=== PATIENT | male | born 1995 | race Caucasian/White ===

== ENCOUNTER 2017-04-07 22:26 | Emergency (ER) | payer SELFPAY ==
[2017-04-07 22:44] VITALS: BP 155/65
[2017-04-08] MEDS ORDERED: Acetaminophen TAB* 325 MG PO ONE (00:19)
[2017-04-08] MEDS ORDERED: Ondansetron ODT TAB* 4 MG PO ONE (00:22)
[2017-04-08] MEDS ORDERED: Cyclobenzaprine TAB* 10 MG PO ONE (02:41)
[2017-04-08] MEDS ORDERED: Cyclobenzaprine TAB* 10 MG ONE (02:42)
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
== END 2017-04-08 02:40 | disposition home or self-care (01) ==
LOC: ED 22:26
DX: S16.1XXA Strain of muscle, fascia and tendon at neck level, initial encounter (principal); R51 Headache; R11.0 Nausea; V49.9XXA Car occupant (driver) (passenger) injured in unspecified traffic accident, initial encounter; Y93.9 Activity, unspecified; Y92.9 Unspecified place or not applicable
CPT/HCPCS: 70450; 72125; 99282; A9270-GY

== ENCOUNTER 2017-08-06 13:49 | Emergency (ER) | payer BC ==
[2017-08-06 15:24] LABS: Urine Appearance Clear; Urine Blood Negative (Negative); Urine Color Straw; Urine Ketones Negative (Negative); Urine Protein Negative (Negative); Urine Specific Gravity 1.004 (1.010-1.030); Urine Urobilinogen Negative (Negative)
--- NOTE | 2017-08-06 15:25 | RAD ---
INDICATION: Right flank pain COMPARISON: None TECHNIQUE: Noncontrast axial source images were acquired from the level hemidiaphragms to the symphysis pubis as part of CT imaging for renal stone. Lung bases: The lung bases are clear. Liver: The liver is normal in size. Noncontrast imaging shows no evidence of a hepatic mass or ductal dilatation. Gallbladder: There are no calcified gallstones. There is no evidence of wall thickening or pericholecystic fluid.. Spleen: The spleen is normal in size. The noncontrast CT appearance is normal. Pancreas: Noncontrast imaging shows no pancreatic mass or ductal dilitation. Adrenal glands: No masses are identified. Kidneys/Bladder: There is no evidence of nephrolithiasis or CT evidence of hydronephrosis. Noncontrast imaging shows no evidence of a renal mass. The bladder is unremarkable.. Adenopathy: There is no evidence of intraperitoneal or retroperitoneal adenopathy. Evaluation is limited without oral contrast. Fluid collections: There are no free or localized fluid collections. Vessels: The aorta and iliac vessels are normal in caliber. There are no significant atherosclerotic changes. The IVC appears normal Pelvic organs: The uterus and adnexa appear normal GI tract: Evaluation of the bowel is limited without oral contrast. The stomach, small bowel, and lower GI tract appear grossly normal. There are no obstructive findings. The appendix is visualized and appears normal. Soft tissues: No soft tissue abnormalities of the extraperitoneal abdomen or pelvis are identified. Osseous structures: There are no acute osseous findings. IMPRESSION: NO ACUTE CT FINDINGS. NO EVIDENCE OF UROLITHIASIS. NORMAL APPENDIX.
[2017-08-06 16:19] LABS: ABS Basophils 0 10^3/ul (0-0.2); ABS Eosinophils 0.2 10^3/ul (0-0.6); ABS Lymphocytes 2.2 10^3/ul (1.0-4.8); ABS Monocytes 0.5 10^3/ul (0-0.8); ABS Nucleated RBC 0 10^3/ul; Eosinophil % 2.6 % (0-6); Hematocrit 46 % (42-52); Hemoglobin 15.9 g/dl (14.0-18.0); Lymphocyte % 27.8 % (25-47); Mean Corpuscular HGB Conc 35 g/dl (31-36); Mean Corpuscular Hemoglobin 31 pg (27-31); Mean Corpuscular Volume 88 fL (80-94); Mean Platelet Volume 8 um3 (7.4-10.4); Nucleated Red Blood Cells % 0.1; Platelet Count 156 10^3/ul (150-450); Red Blood Count 5.21 10^6/ul (4.0-5.4); Red Cell Distribution Width 13 % (10.5-15); White Blood Count 8.1 10^3/ul (3.5-10.8)
[2017-08-06 16:39] LABS: EGFR Non-African American 96.6 (>60)
[2017-08-06] MEDS ORDERED: Ketorolac INJ* 30 MG/ML 1 ML VIAL IM ONE (16:55)
[2017-08-06 17:12] VITALS: BP 132/57
--- NOTE | 2017-08-08 11:41 | ED ---
Jose Mendez Angela, scribed for Riley Novoa MD on 08/06/17 at 1443 . Abdominal Pain/Male - HPI Summary HPI Summary: This pt is a 21 y/o male presenting to [facility] c/o right flank pain since last night at around 21:00. Pt states his pain began suddenly last night and has been constant since then. Pt currently rates his pain 7/10 in severity. His pain is aggravated with movement and deep breathing. He additionally notes diarrhea (described as loose stool which is not normal for him) and nausea ( earlier today). He denies cough, vomiting, fever, chills, hematuria, difficulty voiding. Pt states he has never had this pain before. He reports occasional marijuana and alcohol use. Pt denies tobacco use. - History of Current Complaint Chief Complaint: EDFlankPain Stated Complaint: ABD PAIN Time Seen by Provider: 08/06/17 14:34 Hx Obtained From: Patient Onset/Duration: Lasting Hours, Still Present Timing: Constant, Lasting Hours Severity Currently: Severe Pain Intensity: 7 Pain Scale Used: 0-10 Numeric Location: Flank - left Radiates: No Character: Sharp Aggravating Factor(s): Movement, Deep Breaths Alleviating Factor(s): Nothing Associated Signs And Symptoms: Positive: Nausea, Diarrhea. Negative: Fever, Constipation, Urinary Symptoms, Vomiting - Allergies/Home Medications Allergies/Adverse Reactions: Allergies Allergy/AdvReac Type Severity Reaction Status Date / Time MS No Known Drug Allergy Allergy Shortness Verified 05/05/14 19:48 [No Known Drug Allergy] of Breath PMH/Surg Hx/FS Hx/Imm Hx Endocrine/Hematology History: Denies: Hx Diabetes Cardiovascular History: Denies: Hx Hypertension Sensory History: Denies: Hx Legally Blind, Hx Deafness Opthamlomology History: Denies: Hx Legally Blind - Surgical History Surgery Procedure, Year, and Place: right shoulder surgery Infectious Disease History: No Infectious Disease History: Denies: Traveled Outside the [place] in Last 30 Days - Family History Known Family History: Positive: Other - Cancer Negative: Hypertension, Diabetes - Social History Alcohol Use: Occasionally Alcohol Amount: socially Substance Use Type: Reports: Marijuana Smoking Status (MU): Never Smoked Tobacco Review of Systems Negative: Fever, Chills Negative: Cough Positive: Diarrhea, Nausea. Negative: Vomiting Positive: flank pain - right. Negative: hematuria, other - difficulty voiding All Other Systems Reviewed And Are Negative: Yes Physical Exam - Summary Physical Exam Summary: VITAL SIGNS: Reviewed. GENERAL: Patient is a well-developed and nourished male who is lying comfortable in the stretcher. Patient is not in any acute respiratory distress. HEAD AND FACE: No signs of trauma. No ecchymosis, hematomas or skull depressions. No sinus tenderness. EYES: PERRLA, EOMI x 2, No injected conjunctiva, no nystagmus. EARS: Hearing grossly intact. Ear canals and tympanic membranes are within normal limits. MOUTH: Oropharynx within normal limits. NECK: Supple, trachea is midline, no adenopathy, no JVD, no carotid bruit, no c- spine tenderness, neck with full ROM. CHEST: Symmetric, no tenderness at palpation LUNGS: Clear to auscultation bilaterally. No wheezing or crackles. CVS: Regular rate and rhythm, S1 and S2 present, no murmurs or gallops appreciated. ABDOMEN: Soft. Left flank tenderness. No signs of distention. No rebound no guarding, and no masses palpated. Bowel sounds are normal. EXTREMITIES: FROM in all major joints, no edema, no cyanosis or clubbing. NEURO: Alert and oriented x 3. No acute neurological deficits. Speech is normal and follows commands. SKIN: Dry and warm Triage Information Reviewed: Yes Vital Signs On Initial Exam: Initial Vitals Temp Pulse Resp BP Pulse Ox 98.1 F 58 16 142/71 100 08/06/17 13:55 08/06/17 13:55 08/06/17 13:55 08/06/17 13:55 08/06/17 13:55 Vital Signs Reviewed: Yes Diagnostics - Vital Signs Vital Signs Temp Pulse Resp BP Pulse Ox 08/06/17 14:37 60 98 08/06/17 13:55 98.1 F 58 16 142/71 100 - Laboratory Lab Results: Lab Results 08/06/17 08/06/17 08/06/17 Range/Units 15:00 15:40 15:40 WBC 8.1 (3.5-10.8) 10^3/ul RBC 5.21 (4.0-5.4) 10^6/ul Hgb 15.9 (14.0-18.0) g/dl Hct 46 (42-52) % MCV 88 (80-94) fL MCH 31 (27-31) pg MCHC 35 (31-36) g/dl RDW 13 (10.5-15) % Plt Count 156 (150-450) 10^3/ul MPV 8 (7.4-10.4) um3 Neut % (Auto) 62.5 (38-83) % Lymph % (Auto) 27.8 (25-47) % [place] % (Auto) 6.5 (1-9) % Eos % (Auto) 2.6 (0-6) % Baso % (Auto) 0.6 (0-2) % Absolute Neuts (auto) 5.0 (1.5-7.7) 10^3/ul Absolute Lymphs (auto) 2.2 (1.0-4.8) 10^3/ul Absolute Monos (auto) 0.5 (0-0.8) 10^3/ul Absolute Eos (auto) 0.2 (0-0.6) 10^3/ul Absolute Basos (auto) 0 (0-0.2) 10^3/ul Absolute Nucleated RBC 0 10^3/ul Nucleated RBC % 0.1 Sodium 138 (133-145) mmol/L Potassium 4.2 (3.5-5.0) mmol/L Chloride 103 (101-111) mmol/L Carbon Dioxide 28 (22-32) mmol/L Anion Gap 7 (2-11) mmol/L BUN 18 (6-24) mg/dL Creatinine 0.98 (0.67-1.17) mg/dL Est GFR ( Amer) 124.2 (>60) Est GFR (Non-Af Amer) 96.6 (>60) BUN/Creatinine Ratio 18.4 (8-20) Glucose 83 (70-100) mg/dL Calcium 9.6 (8.6-10.3) mg/dL Total Bilirubin 1.40 H (0.2-1.0) mg/dL AST 44 H (13-39) U/L ALT 31 (7-52) U/L Alkaline Phosphatase 41 (34-104) U/L C-Reactive Protein < 1.00 (< 5.00) mg/L Total Protein 6.8 (6.4-8.9) g/dL Albumin 4.3 (3.2-5.2) g/dL Globulin 2.5 (2-4) g/dL Albumin/Globulin Ratio 1.7 (1-3) Lipase 31 (11.0-82.0) U/L Urine Color Straw Urine Appearance Clear Urine pH 7.0 (5-9) Ur Specific [place] 1.004 L (1.010-1.030) Urine Protein Negative (Negative) Urine Ketones Negative (Negative) Urine Blood Negative (Negative) Urine Nitrate Negative (Negative) Urine Bilirubin Negative (Negative) Urine Urobilinogen Negative (Negative) Ur Leukocyte Esterase Negative (Negative) Urine Glucose Negative (Negative) Result Diagrams: 08/06/17 15:40 08/06/17 15:40 Lab Statement: Any lab studies that have been ordered have been reviewed, and results considered in the medical decision making process. - CT Abdomen/pelvis CT CT Interpretation: No Acute Changes - IMPRESSION: No acute CT findings. No evidence of urolithiasis. Normal appendix. Dr. Novoa has reviewed this radiology report. CT Interpretation Completed By: Radiologist Re-Evaluation - Re-Evaluation First Eval Re-Evaluation Time: 16:59 Comment: I reviewed the CT results with the pt. Abdominal Pain Fem Course/Dx - Course Assessment/Plan: This pt is a 21 y/o male presenting to [facility] c/o right flank pain since last night at around 21:00. Pt states his pain began suddenly last night and has been constant since then. Pt currently rates his pain 7/10 in severity. His pain is aggravated with movement and deep breathing. He additionally notes diarrhea (described as loose stool which is not normal for him) and nausea (earlier today). He denies cough, vomiting, fever, chills, hematuria, difficulty voiding. Pt states he has never had this pain before. Test results without any significant abnormalities. Abdomen/Pelvis CT: No acute CT findings. No evidence of urolithiasis. Normal appendix. In the ED course the pt was given Toradol and the symptoms resolved. Pt is asymptomatic, and is drinking and eating without nausea or vomiting. Therefore, the pt will be discharged to home with follow up from PCP. Pt is hemodynamically stable, alert and oriented x3. He is pain free. - Diagnoses Provider Diagnoses: Flank pain Discharge - Discharge Plan Condition: Stable Disposition: HOME Patient Education Materials: Flank Pain (ED) Referrals: [facility] [Primary Care Provider] - 3 Days Additional Instructions: Please follow up with your primary care provider. RETURN TO THE ED FOR ANY WORSENING SYMPTOMS. The documentation as recorded by the Jose eid Angela accurately reflects the service I personally performed and the decisions made by me, Riley Novoa MD.
== END 2017-08-06 17:11 | disposition home or self-care (01) ==
LOC: ED 13:49
DX: R10.84 Generalized abdominal pain (principal); R11.0 Nausea; R19.7 Diarrhea, unspecified
CPT/HCPCS: 36415; 74176; 80053; 81003; 83690; 85025; 86140; 96372; 99282; J1885